=== PATIENT | female | born 2000 | race Caucasian/White ===

== ENCOUNTER 2020-07-05 20:06 | Emergency (ER) | payer OTHER ==
[2020-07-05 21:51] LABS: HEMOGLOBIN 13.9 gm/dl (12.3-15.3); RED BLOOD COUNT 5.11 M/UL (4.00-5.10); WHITE BLOOD COUNT 8.2 K/UL (4.5-11.0)
[2020-07-05 22:11] LABS: BUN/CREATININE RATIO 16 (0-10)
[2020-07-06] MEDS ORDERED: IBUPROFEN600 MG PO (01:01)
== END 2020-07-06 01:25 | disposition home or self-care (01) ==
LOC: ER1 20:06
PROVIDERS: Internal Medicine
DX: R07.9 Chest pain, unspecified (principal); Z86.73 Personal history of transient ischemic attack (TIA), and cerebral infarction without residual deficits; Z88.1 Allergy status to other antibiotic agents; Z88.0 Allergy status to penicillin; Z88.2 Allergy status to sulfonamides
CPT/HCPCS: 71046; 80053; 84484; 84703; 85025; 93005; 99285

== ENCOUNTER 2021-04-27 22:54 | Emergency (ER) | payer OTHER ==
[~2021-04-27 22:54] MED LIST: IBUPROFEN600 MG PO
== END 2021-04-27 23:55 | disposition left against medical advice (07) ==
LOC: ER1 22:54
DX: Z53.21 Procedure and treatment not carried out due to patient leaving prior to being seen by health care provider (principal)